=== PATIENT | female | born 2000 | race Caucasian/White ===

== ENCOUNTER 2023-06-01 19:54 | Emergency (ER) | payer OTHER, SELFPAY ==
[2023-06-01 19:55] VITALS: BP 97/78; PULSE 130; RESP 23; TEMP 38.1; O2SAT 100; BMI 21.1
[2023-06-01] MEDS: Ondansetron 4 MG/2 ML Vial IV (20:30)
[2023-06-01] MEDS: 0.9% Normal Saline (1000mL) 1,000 ML 999 ML IV (20:30)
[2023-06-01] MEDS: Ketorolac 30 MG/ML Syringe IV (20:30)
--- NOTE | 2023-06-01 20:35 | EDS_ITS ---
HPI History of Present Illness Chief Complaint: General Illness Informant: patient, spouse/S.O. and EMS Onset/Context/Timing Onset: Today Context: Gradual Onset Timing: Continuous Associated Symptoms Associated Symptoms ED: cough Narrative Narrative: 23-year-old female started becoming ill today around 8 hours ago, this afternoon. She states this started with feeling poorly, fevers subjective, chills, sore throat. The sore throat is gone now, she has a headache, some nausea and upper abdominal pain, body aches, malaise. EMS thought she looked short of breath. The patient denies any dyspnea or chest discomfort. She has not had a cough today. She denies any runny nose or ear pain. She states she feels very poorly. Spouse states that he is getting over a URI with some sinus congestion. He states that he administered an albuterol aerosol to her prior to EMS picking her up because he has used it in the past when he has had colds and sometimes it helps. She is adamant that she had no dyspnea prior to using the albuterol and she does not have a history of asthma. She has no known medical problems. PFSH PFSH Medical History no medical history no medical history Home Medications NK 06/01/23 [History Last Taken Unknown] ondansetron 4 mg disintegrating tablet 8 mg (2 x 4 mg) PO Q8H PRN PRN Nausea #20 tabs 06/01/23 [Rx Last Taken Unknown] Allergy/AdvReac Type Severity Reaction Status Date / Time No Known Allergies Allergy Verified 06/01/23 19:55 Surgical History no surgical history Social History Smoking Status: Never smoker ROS ROS ED Constitutional Constitutional ED: Reports body ache(s), chills, fatigue, fever(s), headache(s), malaise and subjective Eyes Eyes: Denies change in vision or diplopia ENT ENT ED: Denies ear pain, rhinorrhea or sore throat Cardiovascular Cardiovascular: Denies chest pain or palpitations Respiratory/Chest Respiratory/Chest: Denies cough, dyspnea or dyspnea on exertion Gastrointestinal Gastrointestinal: Reports abdominal pain, nausea and vomiting; Denies diarrhea Genitourinary Genitourinary ED: Denies dysuria or hematuria Musculoskeletal Musculoskeletal: Reports myalgias; Denies back pain or neck pain Integumentary Denies abscess or rash Neurologic Neurologic: Reports headache(s); Denies paresthesias or weakness Psychiatric Psychiatric: Reports anxiety; Denies suicidal ideation or suicidal thoughts EXAM Physical Exam Const Vital Signs: 06/01/23 19:55 06/01/23 19:55 Temperature 100.5 F H Temperature Source Temporal Pulse Rate 130 H Respiratory Rate 23 H Respiratory Effort Normal Non-Labored Respiratory Pattern Normal Blood Pressure 97/78 Blood Pressure Mean 84 Pulse Ox 100 Oxygen Delivery Method Room Air Positive well nourished and well developed Constitutional Narrative: Malaised-appearing, no distress General Appearance ED: well developed and NAD HEENT Reports moist mucous membranes HEENT Narrative: POP nml. no trismus, no exudates. normocephalic and atraumatic Eyes PERRL and EOMs intact bilaterally Neck full ROM, no lymphadenopathy and supple Chest Wall inspection of chest normal and palpation of chest normal Resp normal respiratory effort and clear to auscultation bilaterally Cardio regular rate, regular rhythm and no murmurs Rate: Negative for tachycardic GI non-tender and non-distended GI Narrative: benign Auscultation: normoactive bowel sounds Palpation: soft Back/Spine no CVA tenderness General Back: other FROM Extremity normal to inspection and no calf tenderness General Extremety ED: Negative for edema, pulses abnormal or tenderness General Extremity: Negative for edema or pulses abnormal Neuro oriented x3, CN's II-XII intact bilaterally and no sensory deficits noted Sensorium / Orientation: awake and alert Motor Exam: strength 5/5 throughout Psych mental status grossly normal Skin no rashes or lesions noted and no wounds MDM MDM MDM Narrative Medical decision making narrative: Very likely viral syndrome. Sent swab for COVID, influenza, RSV, that is negative and given her fever and tachycardia, which is more than likely due to the fact she had an albuterol aerosol and is very anxious, I obtained a chest x- ray. On my interpretation 2 view showed no evidence of acute pneumonia or other acute abnormality. After IV fluids, Zofran, Toradol, and Tylenol she is feeling much better and appears much less anxious. Will send her home with a prescription for Zofran and instructions for supportive care they are comfortable with that plan. Discharge Plan Triage Chief Complaint: General Illness ED Provider: Ruslan Maloney Dx/Rx/DC Orders Clinical Impression: Acute viral syndrome Instructions: ED Viral Syndrome (Adult) Prescriptions: New ondansetron [ondansetron] 4 mg tablet,disintegrating 8 mg PO Q8H PRN PRN (Reason: Nausea) Qty: 20 0RF No Action NK Primary Care Provider: Shanae Branch NP Referrals: Shanae Branch NP, [facility] [Primary Care Provider] - 1 Week if not improving Disposition Disposition: Home, Self Care
--- NOTE | 2023-06-01 21:24 | RAD_ITS ---
INDICATION: fever EXAMINATION/TECHNIQUE: X-RAY - XR Chest 2 Views COMPARISON: No relevant prior comparison study available FINDINGS: LINES/DEVICES: None. LUNGS: No consolidation, edema or effusion. No pneumothorax. MEDIASTINUM AND CARDIOVASCULAR STRUCTURES: Cardiac silhouette not enlarged. Central airways and mediastinal contour are unremarkable. BONES AND SOFT TISSUES: Unremarkable. RAD/Chest PA and Lateral IMPRESSION: No radiographic evidence of acute cardiopulmonary disease. Electronically Signed: Ritesh Temple MD at 22:21 EST ,
[2023-06-01] MEDS: Acetaminophen 500 MG Tablet 1000 MG PO (21:46)
== END 2023-06-01 21:50 | disposition home or self-care (01) ==
PROVIDERS: Emergency Provider Emergency Medicine; PCP Nurse Practitioner Family; Visit Provider Emergency Medicine
DX: B34.9 Viral infection, unspecified (principal); R51.9 Headache, unspecified; R11.0 Nausea; R50.9 Fever, unspecified
CPT/HCPCS: 71046; 87631; 96361; 96374; 96375; 99284; J7030; A4216; J2405